=== PATIENT | female | born 1955 | race Caucasian/White ===

== ENCOUNTER 2023-02-14 06:16 | Day surgery (SDC) | payer MEDICARE, BC, OTHER ==
[~2023-02-14] VITALS: Ht 157.5 cm; Wt 96.0 kg
[~2023-02-14 06:16] MED LIST: ADV100INH INH; ALLO10TA PO; AZEL1SPR3 NARES; BSS IRRIG/VANCO(10MG)/TOBRA(5MG)/EPINEPH(1:1000-0.5CC)500ML BAG-ORONLY IR ONE; CILO100T3 PO; COLC0.6T47 PO; CYCLOPENTOLATE 1% OPHTH SOLN 2ML BTL OD SCH; FARX1TAB3 PO; FENO160T10 PO; FOLI1TAB11 PO; FURO40TA2 PO; GABA-282 PO; HYDR-3910 PO; ISOS20TA53 PO; LIDOCAINE 3.5 % 1ML OPHTH TOPICAL GEL OU ONE; METF500T13 PO; METO25TA4 PO; MOME50SP2; MONT10TA97 PO; OMEP1CAP73 PO; PHENYLEPHRINE 10% OPHTH SOL 5ML OD PRN; PHENYLEPHRINE 2.5% OPHTH SOL 2ML OD SCH; POTA-298 PO; PROA1AER2 INH; ROSU10TA6 PO; SYNT150T PO; TROPICAMIDE 1% OPHTH SOLN 15ML OD SCH; TRUL0.5I SC
[2023-02-14] MEDS ORDERED: LIDOCAINE 1% SDV 5ML VIAL As Ordered ONE (06:43)
[2023-02-14] MEDS ORDERED: MIDAZOLAM INJ 2MG/2ML VIAL As Ordered ONE (07:13)
[2023-02-14] MEDS ORDERED: fentaNYL 100 MCG/2 ML INJECTION As Ordered ONE (07:13)
[2023-02-14] MEDS ORDERED: TOBRAMYCIN 0.3% OPHTH SOLN 5ML OD ONE (07:40)
[2023-02-14 08:59] VITALS: BP 177/82; TEMP 96.9; O2SAT 97
== END 2023-02-14 09:35 | disposition home or self-care (01) ==
LOC: M SDC 06:16
PROVIDERS: ATTEND Ophthalmology
DX: H25.11 Age-related nuclear cataract, right eye (principal); E78.5 Hyperlipidemia, unspecified; E11.9 Type 2 diabetes mellitus without complications; I10 Essential (primary) hypertension; K21.9 Gastro-esophageal reflux disease without esophagitis; E03.9 Hypothyroidism, unspecified; Z86.79 Personal history of other diseases of the circulatory system; Z86.718 Personal history of other venous thrombosis and embolism; Z87.891 Personal history of nicotine dependence; Z88.1 Allergy status to other antibiotic agents; Z88.5 Allergy status to narcotic agent; Z88.8 Allergy status to other drugs, medicaments and biological substances; Z79.899 Other long term (current) drug therapy
CPT/HCPCS: 66984; J2250; J3010; V2632